=== PATIENT | female | born 1980 | race Caucasian/White ===

== ENCOUNTER 2017-04-08 12:39 | Emergency (ER) | payer OTHER ==
[~2017-04-08] VITALS: Ht 162.6 cm; Wt 102.1 kg
[~2017-04-08 12:39] MED LIST: ALBU90OI; AMOX1XR PO; AMOX500 PO; AZIT500; BEYAZ 28 TABLE1 EACH PO; CEPH500 PO; CODACE30 PO; DESI25; DICL250 PO; ERGCAF; Esgic Tablet1 EACH PO; FLUO10 PO; HYDACE5 PO; HYDR1TAB94 PO; IBUP800 PO; KRILL OIL500 MG PO; MEDR150I; METO50 PO; MULVITMINE; OMEP20ER PO; PENVK500 PO; PREN-16 PO; RXCODACET PO; RXHYDACE PO; RXPROM25 PO; SPIR25 PO; SULTRIDS PO; VALA500 PO; ZOLP10 PO
[2017-04-08 13:18] LABS: BASOPHILS ABSOLUTE AUTO 0.05 K/mm3 (0.00-0.23); BASOPHILS PERCENT AUTO 0 % (0-2); EOSINOPHILS ABSOLUTE AUTO 0.18 K/mm3 (0.00-0.68); EOSINOPHILS PERCENT AUTO 2 % (0-6); Hematocrit 39.1 % (33.0-51.0); Hemoglobin 12.9 g/dL (11.5-16.0); IMMATURE GRAN ABSOLUTE AUTO 0.04 K/mm3 (0.00-0.10); IMMATURE GRAN PERCENT AUTO 0 % (0-1); LYMPHOCYTES ABSOLUTE AUTO 2.43 K/mm3 (0.84-5.20); LYMPHOCYTES PERCENT AUTO 20 % (21-46); MONOCYTES ABSOLUTE AUTO 0.74 K/mm3 (0.16-1.47); MONOCYTES PERCENT AUTO 6 % (4-13); Mean Corpuscular HGB 30.3 pg (26.0-34.0); Mean Corpuscular Volume 92 fL (80-100); NEUTROPHILS PERCENT AUTO 72 % (41-73); RDW Coefficient Variation 12.7 % (11.7-14.2); Red Blood Cell Count 4.26 M/mm3 (3.80-5.20); White Blood Cell Count 12.04 K/mm3 (4.00-11.30)
[2017-04-08 13:19] LABS: Mean Platelet Volume 10.8 fL (9.1-12.4); Platelet Count 125 K/mm3 (150-400)
[2017-04-08 13:37] LABS: Alanine Aminotransfer (ALT/SGP 33 U/L (12-78); Albumin, Blood 3.5 g/dL (3.4-5.0); Albumin/Globulin Ratio 0.9 (0.8-1.8); Alk Phos 68 U/L (50-136); Anion Gap 9 mmol/L (6-16); Aspartate Aminotrans (AST/SGOT 30 U/L (12-37); Bilirubin, Total 0.3 mg/dL (0.1-1.0); Blood Urea Nitrogen 13 mg/dL (8-24); Bun/Creatinine Ratio 21.3 (12.0-20.0); CO2, Blood 22 mmol/L (21-32); Calcium, Blood 8.5 mg/dL (8.5-10.1); Chloride, Blood 105 mmol/L (98-108); Creatinine, Blood 0.61 mg/dL (0.40-1.00); Globulin, Blood 3.7 g/dL (2.2-4.0); Glomerular Filtration Rate >60 (60-); Glucose, Blood 124 mg/dL (70-99); Potassium, Blood 4.4 mmol/L (3.5-5.5); Sodium, Blood 136 mmol/L (136-145); Total Protein, Blood 7.2 g/dL (6.4-8.2)
[2017-04-08] MEDS ORDERED: Zofran Odt4 MG SL (15:08)
[2017-04-09] MEDS ORDERED: Norco 5-325 Ta1 EACH PO (12:26)
== END 2017-04-08 15:27 | disposition home or self-care (01) ==
LOC: ER 12:39
PROVIDERS: Emergency Medicine
DX: K52.9 Noninfective gastroenteritis and colitis, unspecified (principal); Z88.5 Allergy status to narcotic agent; Z88.8 Allergy status to other drugs, medicaments and biological substances; Z79.899 Other long term (current) drug therapy; F43.10 Post-traumatic stress disorder, unspecified
CPT/HCPCS: 36415; 74177; 76856; 80053; 81000; 81025; 83690; 85025; 96361; 96374; 96375; 96376; 99284; J1170; J2405; J7030; Q9967

== ENCOUNTER 2017-04-09 09:47 | Emergency (ER) | payer OTHER ==
[~2017-04-09] VITALS: Ht 165.1 cm; Wt 102.1 kg
[~2017-04-09 09:47] MED LIST changes: +Zofran Odt4 MG SL
[2017-04-09 10:59] LABS: BASOPHILS ABSOLUTE AUTO 0.04 K/mm3 (0.00-0.23); BASOPHILS PERCENT AUTO 0 % (0-2); EOSINOPHILS ABSOLUTE AUTO 0.14 K/mm3 (0.00-0.68); EOSINOPHILS PERCENT AUTO 1 % (0-6); Hematocrit 37.3 % (33.0-51.0); Hemoglobin 12.4 g/dL (11.5-16.0); IMMATURE GRAN ABSOLUTE AUTO 0.03 K/mm3 (0.00-0.10); IMMATURE GRAN PERCENT AUTO 0 % (0-1); LYMPHOCYTES PERCENT AUTO 14 % (21-46); MONOCYTES ABSOLUTE AUTO 0.55 K/mm3 (0.16-1.47); MONOCYTES PERCENT AUTO 5 % (4-13); Mean Corpuscular HGB 29.9 pg (26.0-34.0); Mean Corpuscular HGB Conc 33.2 g/dL (31.5-36.5); Mean Corpuscular Volume 90 fL (80-100); Mean Platelet Volume 10.3 fL (9.1-12.4); NEUTROPHILS PERCENT AUTO 79 % (41-73); Platelet Count 237 K/mm3 (150-400); RDW Coefficient Variation 12.7 % (11.7-14.2); RDW Standard Deviation 41.5 fL (35.1-46.3); Red Blood Cell Count 4.15 M/mm3 (3.80-5.20); White Blood Cell Count 10.16 K/mm3 (4.00-11.30)
[2017-04-09 11:20] LABS: Alanine Aminotransfer (ALT/SGP 27 U/L (12-78); Albumin, Blood 3.4 g/dL (3.4-5.0); Alk Phos 62 U/L (50-136); Anion Gap 10 mmol/L (6-16); Aspartate Aminotrans (AST/SGOT 16 U/L (12-37); Bilirubin, Total 0.3 mg/dL (0.1-1.0); Blood Urea Nitrogen 12 mg/dL (8-24); Bun/Creatinine Ratio 21.9 (12.0-20.0); CO2, Blood 22 mmol/L (21-32); Chloride, Blood 105 mmol/L (98-108); Creatinine, Blood 0.55 mg/dL (0.40-1.00); Globulin, Blood 3.4 g/dL (2.2-4.0); Glomerular Filtration Rate >60 (60-); Glucose, Blood 188 mg/dL (70-99); Potassium, Blood 3.8 mmol/L (3.5-5.5); Sodium, Blood 137 mmol/L (136-145); Total Protein, Blood 6.8 g/dL (6.4-8.2)
[2017-04-09] MEDS ORDERED: Norco 5-325 Ta1 EACH PO (12:26)
== END 2017-04-09 13:05 | disposition home or self-care (01) ==
LOC: ER 09:47
PROVIDERS: Emergency Medicine
DX: S39.011A Strain of muscle, fascia and tendon of abdomen, initial encounter (principal); Z88.5 Allergy status to narcotic agent; Z88.8 Allergy status to other drugs, medicaments and biological substances; Z79.899 Other long term (current) drug therapy; F43.10 Post-traumatic stress disorder, unspecified; X58.XXXA Exposure to other specified factors, initial encounter
CPT/HCPCS: 36415; 80053; 84703; 85025; 96361; 96374; 96375; 99284; J1170; J1885; J2405; J7030

== ENCOUNTER 2017-08-19 14:55 | Emergency (ER) | payer OTHER ==
[~2017-08-19] VITALS: Ht 165.1 cm; Wt 108.4 kg
[~2017-08-19 14:55] MED LIST changes: +Norco 5-325 Ta1 EACH PO
[2017-08-19] MEDS ORDERED: PSEU120ER PO (15:53)
== END 2017-08-19 16:00 | disposition home or self-care (01) ==
LOC: ER 14:55
DX: J02.9 Acute pharyngitis, unspecified (principal); Z88.5 Allergy status to narcotic agent; Z88.8 Allergy status to other drugs, medicaments and biological substances; Z79.899 Other long term (current) drug therapy; F43.10 Post-traumatic stress disorder, unspecified
CPT/HCPCS: 87081; 87430; 99283

== ENCOUNTER 2017-10-15 18:07 | Emergency (ER) | payer OTHER ==
[~2017-10-15] VITALS: Ht 165.1 cm; Wt 108.9 kg
[~2017-10-15 18:07] MED LIST changes: +PSEU120ER PO
[2017-10-15] MEDS ORDERED: PROG100 PO (18:25)
[2017-10-15] MEDS ORDERED: Synthroid/Levo0.1 MG PO (18:25)
[2017-10-15] MEDS ORDERED: VALA500 PO (18:25)
[2017-10-15 18:56] LABS: BASOPHILS ABSOLUTE AUTO 0.04 K/mm3 (0.00-0.23); BASOPHILS PERCENT AUTO 0 % (0-2); EOSINOPHILS ABSOLUTE AUTO 0.19 K/mm3 (0.00-0.68); EOSINOPHILS PERCENT AUTO 2 % (0-6); IMMATURE GRAN ABSOLUTE AUTO 0.02 K/mm3 (0.00-0.10); IMMATURE GRAN PERCENT AUTO 0 % (0-1); LYMPHOCYTES ABSOLUTE AUTO 2.09 K/mm3 (0.84-5.20); LYMPHOCYTES PERCENT AUTO 21 % (21-46); MONOCYTES ABSOLUTE AUTO 0.73 K/mm3 (0.16-1.47); MONOCYTES PERCENT AUTO 7 % (4-13); Mean Corpuscular HGB 30.7 pg (26.0-34.0); Mean Corpuscular HGB Conc 34.2 g/dL (31.5-36.5); Mean Corpuscular Volume 90 fL (80-100); Mean Platelet Volume 9.7 fL (9.1-12.4); NEUTROPHILS ABSOLUTE AUTO 7.04 K/mm3 (1.96-9.15); NEUTROPHILS PERCENT AUTO 70 % (41-73); Platelet Count 290 K/mm3 (150-400); RDW Coefficient Variation 12.6 % (11.7-14.2); Red Blood Cell Count 4.23 M/mm3 (3.80-5.20); White Blood Cell Count 10.11 K/mm3 (4.00-11.30)
[2017-10-15 19:13] LABS: Troponin I <0.015 ng/mL (0.000-0.040)
[2017-10-15 19:24] LABS: Alanine Aminotransfer (ALT/SGP 34 U/L (12-78); Albumin, Blood 3.9 g/dL (3.4-5.0); Albumin/Globulin Ratio 1.1 (0.8-1.8); Alk Phos 68 U/L (50-136); Anion Gap 9 mmol/L (6-16); Aspartate Aminotrans (AST/SGOT 21 U/L (12-37); Bilirubin, Total 0.3 mg/dL (0.1-1.0); Blood Urea Nitrogen 23 mg/dL (8-24); Bun/Creatinine Ratio 34.1 (12.0-20.0); CO2, Blood 25 mmol/L (21-32); Calcium, Blood 9.2 mg/dL (8.5-10.1); Chloride, Blood 102 mmol/L (98-108); Creatinine, Blood 0.67 mg/dL (0.40-1.00); Globulin, Blood 3.5 g/dL (2.2-4.0); Glomerular Filtration Rate >60 (60-); Glucose, Blood 79 mg/dL (70-99); Potassium, Blood 3.8 mmol/L (3.5-5.5); Sodium, Blood 136 mmol/L (136-145); Total Protein, Blood 7.4 g/dL (6.4-8.2)
[2017-10-15 19:40] LABS: Source, Urine Clean Catch
[2017-10-15 19:50] LABS: Bilirubin, Urine Neg (Neg); Blood, Urine Neg (Neg); Glucose Qualitative, Urine Neg (Neg); Ketones, Urine Neg (Neg); Leukocyte Esterase, Urine Neg (Neg); Nitrite, Urine Neg (Neg); Protein, Urine Neg (Neg); Specific Gravity, Urine 1.015 (1.003-1.022); Urobilinogen, Urine NORM (Normal)
[2017-10-15 19:58] LABS: Appearance, Urine Clear (Clear); Color, Urine Yellow (P-Yellow)
== END 2017-10-15 21:30 | disposition home or self-care (01) ==
LOC: ER 18:07
PROVIDERS: Physician Assistant
DX: R07.9 Chest pain, unspecified (principal); Z88.5 Allergy status to narcotic agent; Z88.8 Allergy status to other drugs, medicaments and biological substances; Z79.899 Other long term (current) drug therapy
CPT/HCPCS: 36415; 71046; 80053; 81003; 84484; 85025; 85379; 93005; 93010; 96374; 99284-25; J2405

== ENCOUNTER 2018-07-23 13:44 | Day surgery (SDC) | payer OTHER ==
[~2018-07-23] VITALS: Ht 162.6 cm; Wt 69.4 kg
[~2018-07-23 13:44] MED LIST changes: +PROG100 PO; +Synthroid/Levo0.1 MG PO
[2018-07-23] MEDS ORDERED: CITA20 PO (14:08)
[2018-07-23] MEDS ORDERED: B-125000 MC2 PO (14:08)
[2018-07-23] MEDS ORDERED: BIOTIN5000 MCG PO (14:09)
[2018-07-23] MEDS ORDERED: VITAMIN D5000 UNIT PO (14:09)
--- NOTE | 2018-07-23 15:08 | NUR ---
07/23/18 1508 Radha Bui (Moraima PERES NOT GIVEN PER DR. STEPHENS'S ORDERS.
[2018-09-01] MEDS ORDERED: CHOL10002 PO (17:02)
[2018-09-01] MEDS ORDERED: BIOTIN1000 MCG PO (17:02)
== END 2018-07-23 16:55 | disposition home or self-care (01) ==
LOC: ORSCSDS 13:44
PROVIDERS: Obstetrics & Gynecology
PROC: 0UBC7ZX Excision of Cervix, Via Natural or Artificial Opening, Diagnostic (ICD-10-PCS; principal; 2018-07-23 15:00)
DX: D06.0 Carcinoma in situ of endocervix (principal); J45.909 Unspecified asthma, uncomplicated; M79.7 Fibromyalgia; Z79.899 Other long term (current) drug therapy
CPT/HCPCS: 88307; J0690; J1100; J1885; J2250; J2405; J3010; J7120

== ENCOUNTER 2018-09-06 07:03 | Day surgery (SDC) | payer OTHER ==
[2018-09-04 12:22] LABS: Hematocrit 39.1 % (33.0-51.0); Mean Corpuscular HGB 29.8 pg (26.0-34.0); Mean Corpuscular HGB Conc 33.2 g/dL (31.5-36.5); Mean Corpuscular Volume 90 fL (80-100); Mean Platelet Volume 10.9 fL (9.1-12.4); Platelet Count 182 K/mm3 (150-400); RDW Coefficient Variation 12.1 % (11.7-14.2); RDW Standard Deviation 39.6 fL (35.1-46.3); Red Blood Cell Count 4.36 M/mm3 (3.80-5.20); White Blood Cell Count 6.31 K/mm3 (4.00-11.30)
[~2018-09-06] VITALS: Ht 165.1 cm; Wt 67.1 kg
[~2018-09-06 07:03] MED LIST changes: +B-125000 MC2 PO; +BIOTIN1000 MCG PO; +BIOTIN5000 MCG PO; +CHOL10002 PO; +CITA20 PO; +VITAMIN D5000 UNIT PO
--- NOTE | 2018-09-06 07:53 | NUR ---
Ambulatory in Day Surgery History, Chart, Medications and Allergies reviewed before start of procedure.Lungs clear T/O to Auscultation. Patient confirms NPO status and agrees with scheduled surgery. Patient reports completing Chlorhexadine shower X2 prior to admission to hospital.Surgical site prepped with 2% Chlorhexidine cloth wipe.
--- NOTE | 2018-09-06 16:48 | NUR ---
PT ARRIVED TO THE ROOM AT APPROXIMATELY 1150. PT ALERT AND ORIENTED UPON ARRIVAL TO THE ROOM. PT DID COMPLAIN OF NAUSEA AND WAS GIVEN ZOFRAN AND PHENERGAN. WILL CONTINUE TO MONITOR.
--- NOTE | 2018-09-06 17:37 | NUR ---
PT REPORTS PASSING FLATUS AND FEELING HUNGRY THIS EVENING. DIET CHANGED TO REGULAR. PT EDUCATED TO EAT SLOWLY.
--- NOTE | 2018-09-06 19:46 | NUR ---
SHIFT SUMMARY PAIN HAS BEEN MANAGED WITH PO PAIN MEDICATION. PT IS TOLERATING PO, AND PASSING FLATUS. PT HAS HAS VAGINAL SPOTTING. VSS. REPORT GIVEN TO POLO MAGUIRE.
--- NOTE | 2018-09-07 00:05 | NUR ---
NOTIFIED DR Love HUNTER PT BP 88/56 HEART RATE 51.BP IS OUTSIDE ORDERED PARAMETER.SCANT VAG SPOTTING. RECEIVED 1 DOSE TORADOL THIS SHIFT. PT ALERT TALKATIVE. REPORTS BP USUALLY ON LOW SIDE.ABD SOFT.NO NEW ORDERS OBTAINED. INSTRUCTED TO CONTINUE TO MONITOR AND NOTIFY IF CONCERNS.
[2018-09-07 04:32] LABS: BASOPHILS ABSOLUTE AUTO 0.01 K/mm3 (0.00-0.23); BASOPHILS PERCENT AUTO 0 % (0-2); EOSINOPHILS ABSOLUTE AUTO 0.01 K/mm3 (0.00-0.68); EOSINOPHILS PERCENT AUTO 0 % (0-6); Hematocrit 31.8 % (33.0-51.0); Hemoglobin 10.5 g/dL (11.5-16.0); IMMATURE GRAN ABSOLUTE AUTO 0.04 K/mm3 (0.00-0.10); IMMATURE GRAN PERCENT AUTO 0 % (0-1); LYMPHOCYTES ABSOLUTE AUTO 1.24 K/mm3 (0.84-5.20); LYMPHOCYTES PERCENT AUTO 12 % (21-46); MONOCYTES ABSOLUTE AUTO 0.78 K/mm3 (0.16-1.47); MONOCYTES PERCENT AUTO 7 % (4-13); Mean Corpuscular HGB 29.8 pg (26.0-34.0); Mean Corpuscular Volume 90 fL (80-100); Mean Platelet Volume 11.2 fL (9.1-12.4); NEUTROPHILS ABSOLUTE AUTO 8.64 K/mm3 (1.96-9.15); NEUTROPHILS PERCENT AUTO 81 % (41-73); Platelet Count 155 K/mm3 (150-400); RDW Coefficient Variation 12.4 % (11.7-14.2); RDW Standard Deviation 40.9 fL (35.1-46.3); Red Blood Cell Count 3.52 M/mm3 (3.80-5.20); White Blood Cell Count 10.72 K/mm3 (4.00-11.30)
--- NOTE | 2018-09-07 06:45 | NUR ---
SUMMARY NO ACUTE CHANGES. SEE LABS.PT HAS AMBULATED.TAKING PO PAIN MEDS.
[2018-09-07] MEDS ORDERED: Vitamin D2000 UNIT PO (10:05)
[2018-09-07] MEDS ORDERED: Colace100 MG PO (10:05)
[2018-09-07] MEDS ORDERED: ESTR2 PO (10:06)
[2018-09-07] MEDS ORDERED: Milk Of Ma400 MG/5 M PO (10:07)
[2018-09-07] MEDS ORDERED: Percocet 5-3251 EACH PO (10:08)
[2018-09-07] MEDS ORDERED: PROM25 PO (10:08)
[2018-09-07] MEDS ORDERED: SIME80CH PO (10:09)
--- NOTE | 2018-09-07 12:15 | NUR ---
PT LUNCH PROVIDED, PT FAMILY AT BEDSIDE.
--- NOTE | 2018-09-07 13:56 | NUR ---
LOW BP PT CONTINUES TO HAVE LOW BP THIS AFTERNOON. PT GOT UP TO AMBULATE AND FELT DIZZY, INITIALLY. PT'S BP INCREASED TO 105/62 WITH AMBULATION, DIZZINESS RESOLVED. WILL CONTINUE TO MONITOR PT. WILL RE-EVALUATE BP AND NOTIFY WONDERLY IF BP REMAINS LOW.
--- NOTE | 2018-09-07 15:11 | NUR ---
LOW BP DR. GUZMAN NOTIFIED OF CONTINUED LOW BP. BP 89/54 PT REPORTED FEELING DIZZY, PT HAD ALSO HAD PAIN MEDICATION. BP DID IMPROVE TO 98/55. DR. GUZMAN WAS NOTIFIED AND WANTED TO CONTINUE WITH DISCHARGE PLANNED. WILL CONTINUE TO MONITOR PT UNTIL HER FAMILY ARRIVES TO TAKE HER HOME.
--- NOTE | 2018-09-07 17:43 | NUR ---
DISCHARGE PT PROVIDED WITH WRITTEN AND VERBAL DISCHARGE INSTRUCTIONS. PT EDUCATED ABOUT SIGNS AND SYMPTOMS OF LOW BP AND EDUCATED TO NOTIFY DR. GUZMAN IF BP BECOMES LOW. PT PROVIDED WITH WRITTEN PRESCRIPTIONS. PT ESCORTED OUT IN W/C BY MILANA ARRIETA. PT VOIDED PRIOR TO DISCHARGE. PT REPORTED PAIN MANAGED PRIOR TO DISCHARGE.
== END 2018-09-07 17:25 | disposition home or self-care (01) ==
LOC: ORSCMMR 07:03 → ORD 08:30 → SURS 11:46 → ORSCMMR 09-07 17:25
PROVIDERS: Obstetrics & Gynecology
PROC: 0UT2FZZ Resection of Bilateral Ovaries, Via Natural or Artificial Opening With Percutaneous Endoscopic Assistance (ICD-10-PCS; principal; 2018-09-06 08:30)
PROC: 0UT9FZZ Resection of Uterus, Via Natural or Artificial Opening With Percutaneous Endoscopic Assistance (ICD-10-PCS; principal; 2018-09-06 08:30)
DX: N80.3 Endometriosis of pelvic peritoneum (principal); N92.0 Excessive and frequent menstruation with regular cycle; E06.3 Autoimmune thyroiditis
CPT/HCPCS: 36415; 84703; 85025; 85027; 86850; 86900; 86901; 88307; J0690; J1100; J1885; J2250; J2405; J2550; J2704; J2710; J3010; J7030; J7120

== ENCOUNTER 2018-10-02 15:19 | Emergency (ER) | payer OTHER ==
[~2018-10-02] VITALS: Ht 162.6 cm; Wt 63.5 kg
[~2018-10-02 15:19] MED LIST changes: +Colace100 MG PO; +ESTR2 PO; +Milk Of Ma400 MG/5 M PO; +PROM25 PO; +Percocet 5-3251 EACH PO; +SIME80CH PO; +Vitamin D2000 UNIT PO
[2018-10-02 16:29] LABS: BASOPHILS ABSOLUTE AUTO 0.02 K/mm3 (0.00-0.23); BASOPHILS PERCENT AUTO 0 % (0-2); EOSINOPHILS ABSOLUTE AUTO 0.07 K/mm3 (0.00-0.68); EOSINOPHILS PERCENT AUTO 1 % (0-6); Hematocrit 37.8 % (33.0-51.0); Hemoglobin 12.6 g/dL (11.5-16.0); IMMATURE GRAN ABSOLUTE AUTO 0.01 K/mm3 (0.00-0.10); IMMATURE GRAN PERCENT AUTO 0 % (0-1); LYMPHOCYTES ABSOLUTE AUTO 1.33 K/mm3 (0.84-5.20); LYMPHOCYTES PERCENT AUTO 26 % (21-46); MONOCYTES ABSOLUTE AUTO 0.39 K/mm3 (0.16-1.47); MONOCYTES PERCENT AUTO 8 % (4-13); Mean Corpuscular HGB 30.3 pg (26.0-34.0); Mean Corpuscular HGB Conc 33.3 g/dL (31.5-36.5); Mean Corpuscular Volume 91 fL (80-100); Mean Platelet Volume 10.8 fL (9.1-12.4); NEUTROPHILS ABSOLUTE AUTO 3.25 K/mm3 (1.96-9.15); NEUTROPHILS PERCENT AUTO 64 % (41-73); Platelet Count 205 K/mm3 (150-400); RDW Standard Deviation 40.3 fL (35.1-46.3); Red Blood Cell Count 4.16 M/mm3 (3.80-5.20); White Blood Cell Count 5.07 K/mm3 (4.00-11.30)
[2018-10-02 16:51] LABS: Alanine Aminotransfer (ALT/SGP 21 U/L (12-78); Albumin, Blood 3.9 g/dL (3.4-5.0); Albumin/Globulin Ratio 1.2 (0.8-1.8); Alk Phos 74 U/L (50-136); Anion Gap 2 mmol/L (6-16); Aspartate Aminotrans (AST/SGOT 10 U/L (12-37); Bilirubin, Total 0.4 mg/dL (0.1-1.0); Blood Urea Nitrogen 19 mg/dL (8-24); Bun/Creatinine Ratio 29.1 (12.0-20.0); CO2, Blood 29 mmol/L (21-32); Calcium, Blood 8.6 mg/dL (8.5-10.1); Chloride, Blood 108 mmol/L (98-108); Creatinine, Blood 0.65 mg/dL (0.40-1.00); Globulin, Blood 3.2 g/dL (2.2-4.0); Glomerular Filtration Rate >60 (60-); Glucose, Blood 70 mg/dL (70-99); Potassium, Blood 4.3 mmol/L (3.5-5.5); Sodium, Blood 139 mmol/L (136-145); Total Protein, Blood 7.1 g/dL (6.4-8.2)
== END 2018-10-02 18:52 | disposition home or self-care (01) ==
LOC: ER 15:19
PROVIDERS: Physician Assistant
DX: N99.821 Postprocedural hemorrhage of a genitourinary system organ or structure following other procedure (principal); Z88.5 Allergy status to narcotic agent; Z88.6 Allergy status to analgesic agent; Z88.8 Allergy status to other drugs, medicaments and biological substances; Z79.899 Other long term (current) drug therapy; K21.9 Gastro-esophageal reflux disease without esophagitis; J45.909 Unspecified asthma, uncomplicated; G43.909 Migraine, unspecified, not intractable, without status migrainosus; F32.9 Major depressive disorder, single episode, unspecified; D64.9 Anemia, unspecified
CPT/HCPCS: 36415; 72193; 76856; 80053; 85025; 86850; 86900; 86901; 99284-25; Q9967

== ENCOUNTER 2018-10-04 20:15 | Emergency (ER) | payer OTHER ==
[~2018-10-04] VITALS: Ht 162.6 cm; Wt 63.5 kg
[2018-10-04 20:54] LABS: BASOPHILS ABSOLUTE AUTO 0.03 K/mm3 (0.00-0.23); BASOPHILS PERCENT AUTO 1 % (0-2); EOSINOPHILS ABSOLUTE AUTO 0.11 K/mm3 (0.00-0.68); EOSINOPHILS PERCENT AUTO 2 % (0-6); Hematocrit 35.1 % (33.0-51.0); Hemoglobin 11.8 g/dL (11.5-16.0); IMMATURE GRAN ABSOLUTE AUTO 0.01 K/mm3 (0.00-0.10); IMMATURE GRAN PERCENT AUTO 0 % (0-1); LYMPHOCYTES ABSOLUTE AUTO 1.86 K/mm3 (0.84-5.20); LYMPHOCYTES PERCENT AUTO 32 % (21-46); MONOCYTES ABSOLUTE AUTO 0.44 K/mm3 (0.16-1.47); MONOCYTES PERCENT AUTO 7 % (4-13); Mean Corpuscular HGB 30.6 pg (26.0-34.0); Mean Corpuscular HGB Conc 33.6 g/dL (31.5-36.5); Mean Corpuscular Volume 91 fL (80-100); Mean Platelet Volume 10.8 fL (9.1-12.4); NEUTROPHILS ABSOLUTE AUTO 3.46 K/mm3 (1.96-9.15); NEUTROPHILS PERCENT AUTO 59 % (41-73); Platelet Count 199 K/mm3 (150-400); RDW Coefficient Variation 12.1 % (11.7-14.2); RDW Standard Deviation 40.2 fL (35.1-46.3); Red Blood Cell Count 3.86 M/mm3 (3.80-5.20); White Blood Cell Count 5.91 K/mm3 (4.00-11.30)
[2018-10-04 21:11] LABS: Alanine Aminotransfer (ALT/SGP 18 U/L (12-78); Albumin/Globulin Ratio 1.3 (0.8-1.8); Alk Phos 73 U/L (50-136); Anion Gap 7 mmol/L (6-16); Aspartate Aminotrans (AST/SGOT 9 U/L (12-37); Bilirubin, Total 0.4 mg/dL (0.1-1.0); Blood Urea Nitrogen 20 mg/dL (8-24); Bun/Creatinine Ratio 27.2 (12.0-20.0); CO2, Blood 28 mmol/L (21-32); Calcium, Blood 8.5 mg/dL (8.5-10.1); Chloride, Blood 109 mmol/L (98-108); Creatinine, Blood 0.74 mg/dL (0.40-1.00); Glomerular Filtration Rate >60 (60-); Glucose, Blood 73 mg/dL (70-99); Potassium, Blood 4.1 mmol/L (3.5-5.5); Sodium, Blood 144 mmol/L (136-145)
== END 2018-10-05 03:02 | disposition home or self-care (01) ==
LOC: ER 20:15
PROVIDERS: Physician Assistant
DX: N99.820 Postprocedural hemorrhage of a genitourinary system organ or structure following a genitourinary system procedure (principal); J45.909 Unspecified asthma, uncomplicated; K21.9 Gastro-esophageal reflux disease without esophagitis; G89.29 Other chronic pain; G43.909 Migraine, unspecified, not intractable, without status migrainosus; F32.9 Major depressive disorder, single episode, unspecified; D64.9 Anemia, unspecified; Z88.5 Allergy status to narcotic agent; Z88.6 Allergy status to analgesic agent; Z88.8 Allergy status to other drugs, medicaments and biological substances; Z79.899 Other long term (current) drug therapy; Z90.710 Acquired absence of both cervix and uterus
CPT/HCPCS: 36415; 74177; 80053; 85025; 86850; 86900; 86901; 96374-59; 96375; 99284-25; J2405; J3010; Q9967

== ENCOUNTER 2018-10-08 11:31 | Day surgery (SDC) | payer OTHER ==
[~2018-10-08] VITALS: Ht 162.6 cm; Wt 65.3 kg
[2018-10-08] MEDS ORDERED: PRENATAL TABLE1 EAC2 PO (12:26)
--- NOTE | 2018-10-08 12:38 | NUR ---
10/08/18 1238 María Elena Martinez V 1 FAILED IV IN L HAND, 1 FAILED IV IN L AC, 1 IV PLACED IN R HAND. PT TOLERATED IV WELL.
--- NOTE | 2018-10-08 15:20 | NUR ---
10/08/18 1520 Libby Carnes AMBULATED TO BR AND VOIDED QS URINE W/O DIFFICULTY
== END 2018-10-08 15:14 | disposition home or self-care (01) ==
LOC: ORSCSDS 11:31
PROVIDERS: Obstetrics & Gynecology
PROC: 0UQG7ZZ Repair Vagina, Via Natural or Artificial Opening (ICD-10-PCS; principal; 2018-10-08 13:00)
DX: N99.820 Postprocedural hemorrhage of a genitourinary system organ or structure following a genitourinary system procedure (principal); E03.9 Hypothyroidism, unspecified; Z79.899 Other long term (current) drug therapy
CPT/HCPCS: J0171; J0690; J1100; J2250; J2370; J2405; J2704; J3010; J7120

== ENCOUNTER → 2018-10-28 | Outpatient (CLI) | payer OTHER ==
[~2018-10-28] MED LIST changes: +PRENATAL TABLE1 EAC2 PO
== END | disposition home or self-care (01) ==
LOC: LAB SHORT 19:46 → LAB 19:46
DX: J02.9 Acute pharyngitis, unspecified (principal)
CPT/HCPCS: 87081

== ENCOUNTER 2018-12-14 19:35 | Emergency (ER) | payer OTHER ==
[~2018-12-14] VITALS: Ht 165.1 cm; Wt 63.5 kg
[2018-12-14] MEDS ORDERED: ESTROGEN/PROGESTERON (20:49)
== END 2018-12-14 21:16 | disposition home or self-care (01) ==
LOC: ER 19:35
DX: S89.92XA Unspecified injury of left lower leg, initial encounter (principal); F43.10 Post-traumatic stress disorder, unspecified; Z88.5 Allergy status to narcotic agent; Z88.6 Allergy status to analgesic agent; Z88.8 Allergy status to other drugs, medicaments and biological substances; Z79.899 Other long term (current) drug therapy; Y04.2XXA Assault by strike against or bumped into by another person, initial encounter
CPT/HCPCS: 73564; 99283-25

== ENCOUNTER 2020-01-17 12:01 | Emergency (ER) | payer OTHER ==
[~2020-01-17] VITALS: Ht 162.6 cm; Wt 68.0 kg
[~2020-01-17 12:01] MED LIST changes: +ESTROGEN/PROGESTERON
== END 2020-01-17 13:41 | disposition home or self-care (01) ==
LOC: ER 12:01
DX: G43.909 Migraine, unspecified, not intractable, without status migrainosus (principal); F43.10 Post-traumatic stress disorder, unspecified; Z79.899 Other long term (current) drug therapy; Z88.5 Allergy status to narcotic agent; Z88.6 Allergy status to analgesic agent; Z88.8 Allergy status to other drugs, medicaments and biological substances
CPT/HCPCS: 36415; 96374; 96375; 99283-25; J0780; J1200; J1885; J7030

== ENCOUNTER 2020-05-14 01:55 | Observation (INO) | payer OTHER ==
[~2020-05-14] VITALS: Ht 162.6 cm; Wt 68.6 kg
[2020-05-14] MEDS ORDERED: PROLEEVA 1,401400 MG PO (02:17)
[2020-05-14 02:37] LABS: BASOPHILS ABSOLUTE AUTO 0.04 K/mm3 (0.00-0.23); BASOPHILS PERCENT AUTO 1 % (0-2); EOSINOPHILS ABSOLUTE AUTO 0.07 K/mm3 (0.00-0.68); EOSINOPHILS PERCENT AUTO 1 % (0-6); IMMATURE GRAN ABSOLUTE AUTO 0.02 K/mm3 (0.00-0.10); IMMATURE GRAN PERCENT AUTO 0 % (0-1); LYMPHOCYTES ABSOLUTE AUTO 1.98 K/mm3 (0.84-5.20); LYMPHOCYTES PERCENT AUTO 26 % (21-46); MONOCYTES ABSOLUTE AUTO 0.43 K/mm3 (0.16-1.47); MONOCYTES PERCENT AUTO 6 % (4-13); Mean Corpuscular HGB 29.9 pg (26.0-34.0); Mean Corpuscular HGB Conc 34.3 g/dL (31.5-36.5); Mean Corpuscular Volume 87 fL (80-100); Mean Platelet Volume 10.4 fL (9.1-12.4); NEUTROPHILS ABSOLUTE AUTO 5.05 K/mm3 (1.96-9.15); NEUTROPHILS PERCENT AUTO 67 % (41-73); Platelet Count 196 K/mm3 (150-400); RDW Coefficient Variation 11.8 % (11.7-14.2); RDW Standard Deviation 37.7 fL (35.1-46.3); Red Blood Cell Count 4.02 M/mm3 (3.80-5.20); White Blood Cell Count 7.59 K/mm3 (4.00-11.30)
[2020-05-14 02:44] LABS: Alanine Aminotransfer (ALT/SGP 22 U/L (12-78); Albumin, Blood 3.6 g/dL (3.4-5.0); Alk Phos 72 U/L (50-136); Anion Gap 7 mmol/L (6-16); Aspartate Aminotrans (AST/SGOT 37 U/L (12-37); Bilirubin, Total 0.4 mg/dL (0.1-1.0); Blood Urea Nitrogen 13 mg/dL (8-24); Bun/Creatinine Ratio 22.5 (12.0-20.0); CO2, Blood 23 mmol/L (21-32); Calcium, Blood 8.2 mg/dL (8.5-10.1); Chloride, Blood 109 mmol/L (98-108); Creatinine, Blood 0.58 mg/dL (0.40-1.00); Globulin, Blood 3.5 g/dL (2.2-4.0); Glomerular Filtration Rate >60 (60-); Glucose, Blood 119 mg/dL (70-99); Potassium, Blood 4.3 mmol/L (3.5-5.5); Sodium, Blood 139 mmol/L (136-145); Total Protein, Blood 7.1 g/dL (6.4-8.2); Troponin I <0.015 ng/mL (0.000-0.040)
[2020-05-14] MEDS ORDERED: ESTR2 PO (05:06)
[2020-05-14] MEDS ORDERED: PROG100 PO (05:07)
--- NOTE | 2020-05-14 06:31 | NUR ---
SHIFT SUMMARY: PT ADMITTED TO MEDICAL FLOOR FROM ER AT 0450. AAOX4. APPEARS RELAXED AND CALM. REPORTING CHEST PAIN 3/10 OVER STERNUM AND RADIATING TO R SHOULDER AND ARM. SINUS BRADYCARDIA, 57, PER TELE MONITOR. DENIES SOB. TORADOL GIVEN X 1 FOR PAIN W/ SLIGHT IMPROVEMENT FROM 3/10 TO 2/10. CALL BUTTON EXPLAINED AND PLACED IN REACH. BED LOW. WCTM.
[2020-05-14] MEDS ORDERED: BIOTIN5 MG PO (12:08)
[2020-05-14] MEDS ORDERED: BUSP5 PO (12:11)
--- NOTE | 2020-05-14 13:36 | NUR ---
DISCHARGE NOTE THIS RN REMOVED IV FROM PT'S HAND PER DOCUMENTATION. THIS RN REVIEWED DC INSTRUCTIONS WITH PT WHO VERBALIZED AN UNDERSTANDING. PT DRESSED SELF IN HOME CLOTHING. THIS RN GATHERED PT BELONGINGS AND WALKED WITH PT TO ER ENTRANCE FOR DC FROM HOSPITAL. PT HAS LEFT THE BUILDING WITH BELONGINGS IN PLACE AT APPROXIMATELY 1255.
== END 2020-05-14 12:58 | disposition home or self-care (01) ==
LOC: ER 01:55 → MEDS 01:56 → ENPENDDIS 11:35 → MEDS 12:58
PROVIDERS: Emergency Medicine; ADMIT Family Medicine
DX: R07.89 Other chest pain (principal); F41.0 Panic disorder [episodic paroxysmal anxiety]; F43.10 Post-traumatic stress disorder, unspecified; J45.909 Unspecified asthma, uncomplicated; K21.9 Gastro-esophageal reflux disease without esophagitis; F32.9 Major depressive disorder, single episode, unspecified; Z98.84 Bariatric surgery status; Z88.8 Allergy status to other drugs, medicaments and biological substances; Z79.899 Other long term (current) drug therapy
CPT/HCPCS: 36415; 71046; 80053; 83690; 83880; 84484; 85025; 93005; 93010; 96374; 96375; 96376; 99285-25; A9270; G0378; J1885; J2270; J2405

== ENCOUNTER 2020-07-24 20:18 | Emergency (ER) | payer OTHER ==
[~2020-07-24] VITALS: Ht 165.1 cm; Wt 72.6 kg
[~2020-07-24 20:18] MED LIST changes: +BIOTIN5 MG PO; +BUSP5 PO; +PROLEEVA 1,401400 MG PO
[2020-07-24 20:58] LABS: BASOPHILS ABSOLUTE AUTO 0.04 K/mm3 (0.00-0.23); BASOPHILS PERCENT AUTO 1 % (0-2); EOSINOPHILS ABSOLUTE AUTO 0.09 K/mm3 (0.00-0.68); EOSINOPHILS PERCENT AUTO 1 % (0-6); Hematocrit 39.1 % (33.0-51.0); Hemoglobin 13.4 g/dL (11.5-16.0); IMMATURE GRAN ABSOLUTE AUTO 0.02 K/mm3 (0.00-0.10); IMMATURE GRAN PERCENT AUTO 0 % (0-1); LYMPHOCYTES ABSOLUTE AUTO 1.87 K/mm3 (0.84-5.20); LYMPHOCYTES PERCENT AUTO 29 % (21-46); MONOCYTES ABSOLUTE AUTO 0.43 K/mm3 (0.16-1.47); MONOCYTES PERCENT AUTO 7 % (4-13); Mean Corpuscular HGB 30.2 pg (26.0-34.0); Mean Corpuscular HGB Conc 34.3 g/dL (31.5-36.5); Mean Corpuscular Volume 88 fL (80-100); Mean Platelet Volume 10.6 fL (9.1-12.4); NEUTROPHILS ABSOLUTE AUTO 3.96 K/mm3 (1.96-9.15); NEUTROPHILS PERCENT AUTO 62 % (41-73); Platelet Count 219 K/mm3 (150-400); RDW Coefficient Variation 11.8 % (11.7-14.2); RDW Standard Deviation 37.6 fL (35.1-46.3); Red Blood Cell Count 4.43 M/mm3 (3.80-5.20); White Blood Cell Count 6.41 K/mm3 (4.00-11.30)
[2020-07-24 21:18] LABS: Alanine Aminotransfer (ALT/SGP 18 U/L (12-78); Albumin, Blood 4.1 g/dL (3.4-5.0); Albumin/Globulin Ratio 1.1 (0.8-1.8); Alk Phos 79 U/L (50-136); Anion Gap 3 mmol/L (6-16); Aspartate Aminotrans (AST/SGOT 14 U/L (12-37); Bilirubin, Total 0.3 mg/dL (0.1-1.0); Blood Urea Nitrogen 14 mg/dL (8-24); Bun/Creatinine Ratio 18.5 (12.0-20.0); CO2, Blood 29 mmol/L (21-32); Calcium, Blood 8.4 mg/dL (8.5-10.1); Chloride, Blood 107 mmol/L (98-108); Creatinine, Blood 0.76 mg/dL (0.40-1.00); Globulin, Blood 3.6 g/dL (2.2-4.0); Glomerular Filtration Rate >60 (60-); Glucose, Blood 70 mg/dL (70-99); Potassium, Blood 3.6 mmol/L (3.5-5.5); Sodium, Blood 139 mmol/L (136-145); Total Protein, Blood 7.7 g/dL (6.4-8.2); Troponin I <0.015 ng/mL (0.000-0.040)
== END 2020-07-24 23:00 | disposition home or self-care (01) ==
LOC: ER 20:18
PROVIDERS: Physician Assistant
DX: R07.9 Chest pain, unspecified (principal); R11.0 Nausea; R42 Dizziness and giddiness; R06.02 Shortness of breath; Z88.5 Allergy status to narcotic agent; Z88.6 Allergy status to analgesic agent; Z88.8 Allergy status to other drugs, medicaments and biological substances; Z79.899 Other long term (current) drug therapy
CPT/HCPCS: 36415; 71046; 80053; 84484; 85025; 93005; 93010; 99284-25